=== PATIENT | male | born 1950 | race Asian ===

== ENCOUNTER 2019-11-22 15:05 | Outpatient (CLI) | payer MEDICARE, SELFPAY ==
--- NOTE | ~2019-11-22 | CT_ITS ---
EXAMINATION: CT pelvis wo con DATE: 11/22/2019 15:33 INDICATION: Inguinal pain TECHNIQUE: Computed tomography (CT) of the pelvis was performed without intravenous contrast. Automat ed exposure control and iterative reconstruction technique were employed. Exam dose: 252.19 mGy-cm t otal exam DLP. COMPARISON: None FINDINGS: There is a prominent amount of fecal material in the colon. No bowel obstruction, bowel wal l thickening, pneumatosis or intraperitoneal free air is evident. The prostate gland, seminal vesicles and urinary bladder are unremarkable. No pelvic mass or adenopathy is evident. There is prominent calcification of the included distal abdo rangel aortic and common, internal and external iliac arteries and femoral arteries. No inguinal hernia is evident. No pelvic fracture or bone destruction is detected. Degenerative changes are noted at L4-5 and L5-S1 level. Bilateral hip osteoarthritis. IMPRESSION: Degenerative changes of the lumbosacral spine and hips Reviewed, dictated and finalized at [facility]. Reviewed, dictated and finalized at [facility].
== END 2019-11-22 15:06 | disposition home or self-care (01) ==
PROVIDERS: PCP Family Medicine; Visit Provider Nurse Practitioner Family
DX: R10.2 Pelvic and perineal pain (principal); M51.36 Other intervertebral disc degeneration, lumbar region; M16.0 Bilateral primary osteoarthritis of hip
CPT/HCPCS: 72192

== ENCOUNTER 2020-05-12 10:01 | Outpatient (CLI) | payer MEDICARE, SELFPAY ==
--- NOTE | ~2020-05-12 | CT_ITS ---
EXAMINATION:CT lung screening DATE: 05/12/2020 10:42 INDICATION: Personal history of tobacco dependence. Smoker who quit in 2016 with 40 pack year history . TECHNIQUE: Computed tomography (CT) of the chest was performed without intravenous contrast. Automate d exposure control and iterative reconstruction technique were employed. The dose-length product (DLP ) was 78.17 mGy-cm. COMPARISON: Chest CT 05/11/2017 FINDINGS: There is no nodule or pleural effusion. The heart size is normal. There are coronary artery calcifications. There are calcifications of the aortic valve. No pericardial effusion. There are zoila dging endplate osteophytes at multiple levels in the spine, consistent with diffuse idiopathic skelet al hyperostosis (DISH). IMPRESSION: 1. Lung-RADS category 1: Negative. Continue annual screening with noncontrast low-dose chest CT in 12 months. Reviewed, dictated and finalized at location [facility]. 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 Lung-RADS category 1: Negative. Continue annual screening with noncontrast l ow-dose chest CT in 12 months.
== END 2020-05-12 10:02 | disposition home or self-care (01) ==
PROVIDERS: PCP Family Medicine; Visit Provider Family Medicine
DX: Z12.2 Encounter for screening for malignant neoplasm of respiratory organs (principal); Z87.891 Personal history of nicotine dependence
CPT/HCPCS: 71271

== ENCOUNTER → 2023-01-25 08:50 | Outpatient (CLI) | payer BC, SELFPAY ==
--- NOTE | ~2023-01-25 | XR_ITS ---
EXAMINATION:XR cervical spine 4-5V DATE: 01/25/2023 09:36 INDICATION: Neck pain TECHNIQUE: AP, lateral, lateral swimmers and odontoid views of the cervical spine are provided. COMPARISON: 09/24/2012 FINDINGS: Alignment is normal. The odontoid process is intact. No fracture is identified. Vertebral b ailyn heights are maintained. There is unchanged moderate loss of intervertebral disc space height at C 6-7. Small degenerative osteophytes project from the anterior endplates of multiple vertebral bodies. There is multilevel moderate facet and uncovertebral joint osteoarthritis. Heterotopic ossification is seen in the posterior subcutaneous tissues at the level of the C4 and C5 spinous processes and adj acent to the C6 spinous process. Prevertebral soft tissues are normal. IMPRESSION: 1. Moderate cervical spondylosis without acute findings or significant interval change. Reviewed, dictated and finalized at location [facility]. 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
--- NOTE | ~2023-01-25 | XR_ITS ---
EXAMINATION: XR lumbar spine 2-3V DATE: 01/25/2023 09:36 INDICATION: Low back pain. TECHNIQUE: 3 views of lumbar spine were obtained. COMPARISON: Lumbar spine radiographs 08/01/2018 FINDINGS: There is 4 degrees levocurvature of lumbar spine. There is 2 mm anterolisthesis of L4 and L 5. Vertebral body heights are normal. Intervertebral disc heights are normal. There are endplate oste ophytes at all levels. There is multilevel mild facet joint osteoarthritis. IMPRESSION: 1. Mild lumbar spondylosis. Reviewed, dictated and finalized at location E. 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 Mild lumbar spondylosis.
== END ==
PROVIDERS: PCP Family Medicine; Referring Provider Family Medicine; Visit Provider Family Medicine
DX: M43.02 Spondylolysis, cervical region (principal); M43.06 Spondylolysis, lumbar region
CPT/HCPCS: 72050; 72100